=== PATIENT | female | born 1975 | race Caucasian/White ===

== ENCOUNTER → 2016-09-04 | Outpatient (CLI) | payer OTHER ==
[~2016-09-04] MED LIST: ALBUTEROL17 GM INH; CALCIUM 500 + D1 TAB PO; CERTAGEN PO; GLUCOSAMINE; HCTZ PO; MOBIC PO; NASONEX17 GM; TOPAMAX PO; VITAMIN D 4001 UDTAB PO; [UNRECOGNIZED DRUG - OTHER]
--- NOTE | ~2016-09-04 | CR63 ---
[facility] A Service of [facility] & [facility] RADIOLOGY TEXT RESULTS PATIENT: JENNIFER HENNING LOCATION: [facility] : 71 UNIT #: [id number] AGE: [address]: Chelo Wray MD SEX: F ORDER DR: [id number] [facility] [address] [place], [place] [address] [id number] O MR#: [id number] Acc #: [id number] NAME: JENNIFER HENNING : 1975 SEX: F STUDY DATE/TIME: 09/04/2016 17:15 UNIT: [facility] ROOM: STUDY DESCRIPTION: CR Chest 2 View Attending Physician: Chelo Wray M.D. Referring Physician: Chelo Wray M.D. Ordering Physician: Chelo Wray M.D. Primary Care Physician: Chelo Wray M.D. MEDICAL IMAGING REPORT This report is preliminary unless electronic signature is present EXAM Chest PA and lateral, 09/04/2016 HISTORY Right side chest pain, shortness of breath and cough for 1 month. FINDINGS The heart is normal in size status post median sternotomy and valvular replacement. 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 Lungs are otherwise clear. No pneumothorax. IMPRESSION No active pulmonary disease. Dictated by... Jai Zuluaga M.D. THIS IS AN ELECTRONICALLY VERIFIED REPORT Jai Zuluaga M.D. at 09/05/2016 4:19 PM KRT/rosa TD: 09/05/2016 00:12 JOB #: [id number] MEDICAL IMAGING REPORT COPY
== END | disposition home or self-care (01) ==
LOC: CRAD 16:00
DX: J01.90 Acute sinusitis, unspecified (principal); R07.9 Chest pain, unspecified
CPT/HCPCS: 71020